=== PATIENT | female | born 1940 | race Caucasian/White ===

== ENCOUNTER → 2017-10-05 | Outpatient (CLI) | payer MEDICARE, OTHER ==
[2017-10-05] MEDS: BARIUM SULFATE 135 ML (E-Z HD) PO (08:14)
== END | disposition home or self-care (01) ==
LOC: RAD 07:49
DX: R13.12 Dysphagia, oropharyngeal phase (principal); I69.320 Aphasia following cerebral infarction; M62.81 Muscle weakness (generalized)
CPT/HCPCS: 74230; 92611